=== PATIENT | female | born 1980 | race American Indian/Alaskan Native ===

== ENCOUNTER 2018-02-20 09:46 | Emergency (ER) | payer MEDICAID ==
--- NOTE | 2018-02-20 10:51 | Emergency Department Report ---
ED Upper Extremity Inj HPI - General Chief Complaint: Extremity Problem,Nontraumatic Stated Complaint: SWOLLEN FINGER Source: patient Mode of arrival: Ambulatory Limitations: No Limitations - History of Present Illness Initial Comments: This is a 37-year-old -[place]ub[place] female who presents with swelling and pain to left middle nail. Patient reports removing a ingrown nail 3-4 days ago. Patient states swelling and pain around nail. Improved but is uncomfortable. She is currently applying Neosporin and salt water soaks with some improvement of symptoms. She wanted to make sure wound was healing appropriately. Patient denies drainage, fever, numbness or tingling. Complaint: Injury to:: left, finger (3rd finger) Onset/Timin -: days(s) Other Extremity Injury: Fingers: Left (3rd finger nail) Other Injuries: none Handedness: right Place: home Severity scale (0 -10): 3 Improves With: cold therapy, other (salt water soaks) Worsens With: other (palpation) Context: other (removed ingrown nail) Associated Symptoms: denies other symptoms Treatments Prior to Arrival: cold therapy, NSAIDS - Related Data Previous Rx's Medication Instructions Recorded Last Taken Type Ibuprofen [Motrin] 800 mg PO Q8HR PRN #30 tablet 03/01/15 Unknown Rx traMADol [Ultram 50 MG tab] 50 mg PO Q6HR PRN #30 tablet 03/01/15 Unknown Rx Bacitracin Zinc [Antibiotic] 28.4 gm TP Q8H 7 Days #1 oint...g. 02/20/18 Unknown Rx Allergies Allergy/AdvReac Type Severity Reaction Status Date / Time Penicillins Allergy Hives Verified 03/01/15 11:36 ED Review of Systems ROS: Stated complaint: SWOLLEN FINGER Other details as noted in HPI Constitutional: denies: chills, fever Respiratory: denies: cough, shortness of breath, wheezing Cardiovascular: denies: chest pain, palpitations Gastrointestinal: denies: abdominal pain, nausea, diarrhea Skin: change in hair/nails (swolling around left middle finger). denies: rash Neurological: denies: headache, weakness, paresthesias Psychiatric: denies: anxiety, depression ED Past Medical Hx - Past Medical History Previous Medical History?: Yes Hx Asthma: Yes - Surgical History Past Surgical History?: No - Social History Smoking Status: Current Every Day Smoker Substance Use Type: None - Medications Home Medications: Home Medications Medication Instructions Recorded Confirmed Last Taken Type Ibuprofen [Motrin] 800 mg PO Q8HR PRN #30 tablet 03/01/15 Unknown Rx traMADol [Ultram 50 MG tab] 50 mg PO Q6HR PRN #30 tablet 03/01/15 Unknown Rx Bacitracin Zinc [Antibiotic] 28.4 gm TP Q8H 7 Days #1 oint...g. 02/20/18 Unknown Rx ED Physical Exam - General Limitations: No Limitations General appearance: alert, in no apparent distress - Respiratory Respiratory exam: Present: normal lung sounds bilaterally. Absent: respiratory distress - Cardiovascular Cardiovascular Exam: Present: regular rate, normal rhythm. Absent: systolic murmur, diastolic murmur, rubs, gallop - GI/Abdominal GI/Abdominal exam: Present: soft, normal bowel sounds - Neurological Exam Neurological exam: Present: alert, oriented X3 - Psychiatric Psychiatric exam: Present: normal affect, normal mood - Skin Skin exam: Present: warm, dry, intact, normal color, other (local erythema and mild swelling at 3rd left nail edge, tenderness, no drainage, normal nail bed). Absent: rash ED Course Vital Signs 02/20/18 09:53 Temperature 99.4 F Pulse Rate 60 Respiratory 16 Rate Blood Pressure 113/77 O2 Sat by Pulse 99 Oximetry ED Medical Decision Making - Medical Decision Making Patient was examined by me. Vitals are normal and patient is in no acute distress. Physical susceptible of paronychia to her middle finger without abscess. Patient given tetanus 0.5 mL IM while in the emergency room. Start bacitracin topical ointment. Plan discussed with patient to discharge home and treat outpatient. Patient discharged home in stable condition. Follow up with PCP in 2-3 days. Critical care attestation.: If time is entered above; I have spent that time in minutes in the direct care of this critically ill patient, excluding procedure time. ED Disposition Clinical Impression: Paronychia of left middle finger Disposition: - TO HOME OR SELFCARE Is pt being admited?: No Does the pt Need Aspirin: No Condition: Stable Instructions: Paronychia (ED) Additional Instructions: Apply bacitracin topical to wound three times a day. Soak finger in warm water twice a day. Follow up with primary care provider in 2-3 days. Prescriptions: Bacitracin Zinc [Antibiotic] 28.4 gm TP Q8H 7 Days #1 oint...g. Referrals: SAHARA MCDONALD MD [Staff Physician] - 3-5 Days [facility] [Outside] - 3-5 Days [facility] [Outside] - 3-5 Days Forms: Work/School Release Form(ED) Time of Disposition: 10:51 Print Language: GREENLANDIC
[2018-02-20] MEDS ORDERED: BOOSTRIX IM ONE (10:55)
[2018-02-20 11:15] VITALS: BP 136/72
== END 2018-02-20 11:08 | disposition home or self-care (01) ==
LOC: ED 09:46
DX: L03.012 Cellulitis of left finger (principal); J45.909 Unspecified asthma, uncomplicated; F17.200 Nicotine dependence, unspecified, uncomplicated; Z88.0 Allergy status to penicillin
CPT/HCPCS: 90471; 90715; 99282

== ENCOUNTER 2018-12-16 02:07 | Emergency (ER) | payer MEDICAID ==
[2018-12-16 02:12] VITALS: BP 139/83
[2018-12-16] MEDS ORDERED: PROVENTIL IH ONE (03:20)
[2018-12-16] MEDS ORDERED: SOLU-Medrol IM ONE (03:20)
--- NOTE | 2018-12-16 03:25 | Emergency Department Report ---
ED Asthma HPI - General Chief Complaint: Upper Respiratory Infection Stated Complaint: WHEEZING COUGH W/FEVER CHEST PAIN Time Seen by Provider: 12/16/18 03:20 Source: patient Mode of arrival: Ambulatory Limitations: No Limitations - History of Present Illness Initial Comments: 38 YO WITH ASTHMA OUT OF HER MEDS COMES TO ER WITH HOARSENESS, WHEEZING, AND CHILLS. VSS. NO FEVER. AMBULATORY WITHOUT SOB. - Related Data Previous Rx's Medication Instructions Recorded Last Taken Type ALBUTEROL Inhaler (OR & NICU) 2 puff IH QID PRN #1 inhalation 12/16/18 Unknown Rx [ProAir HFA Inhaler] ALBUTEROL NEB's [Proventil 0.083% 2.5 mg IH TID PRN #1 box 12/16/18 Unknown Rx NEBS] Azithromycin [Zithromax Z-CAROLYNN] 250 mg PO DAILY #6 tablet 12/16/18 Unknown Rx Cetirizine HCl [ZyrTEC] 10 mg PO DAILY #30 capsule 12/16/18 Unknown Rx Fluticasone [Flonase] 1 spray NS QDAY #1 bottle 12/16/18 Unknown Rx predniSONE [Deltasone] 20 mg PO DAILY #5 tablet 12/16/18 Unknown Rx Allergies Allergy/AdvReac Type Severity Reaction Status Date / Time Penicillins Allergy Hives Verified 03/01/15 11:36 ED Review of Systems ROS: Stated complaint: WHEEZING COUGH W/FEVER CHEST PAIN Other details as noted in HPI Comment: All other systems reviewed and negative ED Past Medical Hx - Past Medical History Previous Medical History?: Yes Hx Asthma: Yes Additional medical history: anemia - Surgical History Past Surgical History?: No - Family History Family history: no significant - Social History Smoking Status: Never Smoker Substance Use Type: None - Medications Home Medications: Home Medications Medication Instructions Recorded Confirmed Last Taken Type ALBUTEROL Inhaler (OR & NICU) 2 puff IH QID PRN #1 inhalation 12/16/18 Unknown Rx [ProAir HFA Inhaler] ALBUTEROL NEB's [Proventil 0.083% 2.5 mg IH TID PRN #1 box 12/16/18 Unknown Rx NEBS] Azithromycin [Zithromax Z-CAROLYNN] 250 mg PO DAILY #6 tablet 12/16/18 Unknown Rx Cetirizine HCl [ZyrTEC] 10 mg PO DAILY #30 capsule 12/16/18 Unknown Rx Fluticasone [Flonase] 1 spray NS QDAY #1 bottle 12/16/18 Unknown Rx predniSONE [Deltasone] 20 mg PO DAILY #5 tablet 12/16/18 Unknown Rx ED Physical Exam - General Limitations: No Limitations General appearance: alert - Head Head exam: Present: normocephalic - Eye Eye exam: Present: normal appearance - ENT ENT exam: Present: mucous membranes moist - Neck Neck exam: Present: normal inspection - Respiratory Respiratory exam: Present: wheezes - Cardiovascular Cardiovascular Exam: Present: regular rate - GI/Abdominal GI/Abdominal exam: Present: soft - Extremities Exam Extremities exam: Present: normal inspection - Neurological Exam Neurological exam: Present: alert, oriented X3 ED Course Vital Signs 12/16/18 02:11 Temperature 97.8 F Pulse Rate 65 Respiratory 18 Rate Blood Pressure 139/83 O2 Sat by Pulse 96 Oximetry ED Medical Decision Making - Medical Decision Making asthma out of meds now with hoarseness, chills, cough medicated in ER dc home with dc plan of care, rx and follow up Vital Signs 12/16/18 02:11 Temperature 97.8 F Pulse Rate 65 Respiratory 18 Rate Blood Pressure 139/83 O2 Sat by Pulse 96 Oximetry Critical care attestation.: If time is entered above; I have spent that time in minutes in the direct care of this critically ill patient, excluding procedure time. ED Disposition Clinical Impression: Asthma with acute exacerbation, URTI (acute upper respiratory infection) Disposition: DC-01 TO HOME OR SELFCARE Is pt being admited?: No Does the pt Need Aspirin: No Condition: Stable Instructions: Asthma (ED) Additional Instructions: MEDS ORDERED TODAY HYDRATE WELL WITH WATER MOTRIN OR TYLENOL FOR PAIN OR FEVER FOLLOW UP WITH PCP TO BE SURE YOU ARE GETTING BETTER Prescriptions: predniSONE [Deltasone] 20 mg PO DAILY #5 tablet Fluticasone [Flonase] 1 spray NS QDAY #1 bottle ALBUTEROL Inhaler (OR & NICU) [ProAir HFA Inhaler] 2 puff IH QID PRN #1 inhalation PRN Reason: Shortness Of Breath ALBUTEROL NEB's [Proventil 0.083% NEBS] 2.5 mg IH TID PRN #1 box PRN Reason: Wheezing Azithromycin [Zithromax Z-CAROLYNN] 250 mg PO DAILY #6 tablet Cetirizine HCl [ZyrTEC] 10 mg PO DAILY #30 capsule Referrals: LUCIEN PARKER MD [Staff Physician] - 3-5 Days Time of Disposition: 03:23
== END 2018-12-16 03:50 | disposition home or self-care (01) ==
LOC: ED 02:07
DX: J45.901 Unspecified asthma with (acute) exacerbation (principal); J06.9 Acute upper respiratory infection, unspecified; Z79.899 Other long term (current) drug therapy; Z88.0 Allergy status to penicillin
CPT/HCPCS: 94640; 96372; 99282; J2930; 94644

== ENCOUNTER 2019-04-04 01:53 | Emergency (ER) | payer MEDICAID ==
[2019-04-04 02:04] VITALS: BP 151/107
[2019-04-04 02:31] LABS: Basophils # (Auto) 0.1 K/mm3 (0.0-0.1); Basophils % (Auto) 1.7 % (0.0-1.8); Eosinophils # (Auto) 0.3 K/mm3 (0.0-0.4); Eosinophils % (Auto) 3.8 % (0.0-4.3); Hematocrit 40.2 % (30.3-42.9); Hemoglobin 13.2 gm/dl (10.1-14.3); Lymphocytes # (Auto) 3.1 K/mm3 (1.2-5.4); Lymphocytes % (Auto) 43.1 % (13.4-35.0); Mean Corpuscular HGB Conc 33 % (30-34); Mean Corpuscular Volume 88 fl (79-97); Monocytes # (Auto) 0.6 K/mm3 (0.0-0.8); Monocytes % (Auto) 8.4 % (0.0-7.3); Platelet Count 275 K/mm3 (140-440); Red Blood Count 4.57 M/mm3 (3.65-5.03)
--- NOTE | 2019-04-04 02:51 | XRay Report ---
CHEST 1 VIEW INDICATION / CLINICAL INFORMATION: Chest Pain. COMPARISON: None available. FINDINGS: SUPPORT DEVICES: None. HEART / MEDIASTINUM: No significant abnormality. LUNGS / PLEURA: No significant pulmonary or pleural abnormality. No pneumothorax. ADDITIONAL FINDINGS: No significant additional findings. IMPRESSION: 1. No acute findings. Signer Name: Crystal Martinez MD Signed: 04/04/2019 2:47 AM Workstation Name: [id number]
[2019-04-04 03:40] LABS: BUN/Creatinine Ratio 16; Blood Urea Nitrogen 11 mg/dL (7-17); Calcium 9.1 mg/dL (8.4-10.2)
[2019-04-04 03:41] LABS: Hemolysis Index 18
[2019-04-04] MEDS ORDERED: ASPIRIN 325 MG TAB PO ONE (04:07)
[2019-04-04] MEDS ORDERED: IPRATROPIUM/ALBUTEROL SULFATE 3 ML AMPUL.NEB IH ONE (04:11)
[2019-04-04] MEDS ORDERED: ACETAMINOPHEN 500 MG TAB PO ONE (04:11)
[2019-04-04] MEDS ORDERED: methylPREDNISolone Sod Succinate 125 MG/2 ML INJ IM ONE (04:11)
--- NOTE | 2019-04-04 05:39 | Emergency Department Report ---
- General Chief Complaint: Chest Pain Stated Complaint: WHEEZING, COUGH, CHEST PAINS Source: patient Mode of arrival: Ambulatory Limitations: No Limitations - History of Present Illness Initial Comments: Patient is a 38-year-old -Tuval[place] female with no past medical history who presents to the ED with [place] of acute onset persistent nasal and sinus congestion, dry cough with wheezing, shortness of breath and pleuritic chest pain for the last 1 week. Patient states that her daughter had similar symptoms prior to her symptoms starting. Patient denies dizziness, syncope, fever, chills, sore throat, nausea, vomiting, abdominal pain, change in vision, diarrhea, dysuria, urinary frequency and urgency, heavy lifting or fall. MD Complaint: cough, rhinorrhea, nasal congestion, other (pleuritic chest wall pain) -: Sudden, week(s) (1) Severity: severe Severity scale (0 -10): 7 Quality: sharp, aching Consistency: constant Improves With: nothing Worsens With: nothing Context: sick contacts Associated Symptoms: denies other symptoms, headache, rhinorrhea, nasal congestion, cough, chest pain, shortness of breath. denies: fever, chills, myalgias, diaphoresis, sore throat, stiff neck, abdominal pain, vomiting, diarrhea, dysuria, confusion, epistaxis, other Treatments Prior to Arrival: none - Related Data Previous Rx's Medication Instructions Recorded Last Taken Type ALBUTEROL Inhaler (OR & NICU) 2 puff IH QID PRN #1 inhalation 12/16/18 Unknown Rx [ProAir HFA Inhaler] ALBUTEROL NEB's [Proventil 0.083% 2.5 mg IH TID PRN #1 box 12/16/18 Unknown Rx NEBS] Azithromycin [Zithromax Z-CAROLYNN] 250 mg PO DAILY #6 tablet 12/16/18 Unknown Rx Cetirizine HCl [ZyrTEC] 10 mg PO DAILY #30 capsule 12/16/18 Unknown Rx Fluticasone [Flonase] 1 spray NS QDAY #1 bottle 12/16/18 Unknown Rx predniSONE [Deltasone] 20 mg PO DAILY #5 tablet 12/16/18 Unknown Rx ALBUTEROL Inhaler (OR & NICU) 2 puff IH QID PRN #8.5 gram 04/04/19 Unknown Rx [ProAir HFA Inhaler] Benzonatate [Tessalon Perles] 100 mg PO Q8HR #30 capsule 04/04/19 Unknown Rx Ibuprofen [Motrin] 800 mg PO Q8HR PRN #24 tablet 04/04/19 Unknown Rx levoFLOXacin [Levaquin TAB] 500 mg PO QDAY #10 tablet 04/04/19 Unknown Rx methylPREDNISolone [Medrol 4MG 4 mg PO DAILY #21 tab.ds.pk 04/04/19 Unknown Rx DOSEPAK (21 tabs)] Allergies Allergy/AdvReac Type Severity Reaction Status Date / Time Penicillins Allergy Hives Verified 03/01/15 11:36 ED Review of Systems ROS: Stated complaint: WHEEZING, COUGH, CHEST PAINS Other details as noted in HPI Constitutional: denies: chills, fever Eyes: denies: eye pain, eye discharge, vision change ENT: congestion. denies: ear pain, throat pain Respiratory: cough, shortness of breath, wheezing Cardiovascular: chest pain (pleuritic chest pain). denies: palpitations Endocrine: no symptoms reported Gastrointestinal: denies: abdominal pain, nausea, diarrhea Genitourinary: denies: urgency, dysuria, discharge Musculoskeletal: denies: back pain, joint swelling, arthralgia Skin: denies: rash, lesions Neurological: denies: headache, weakness, paresthesias Psychiatric: denies: anxiety, depression Hematological/Lymphatic: denies: easy bleeding, easy bruising ED Past Medical Hx - Past Medical History Previous Medical History?: Yes Hx Asthma: Yes Additional medical history: anemia - Surgical History Past Surgical History?: No - Social History Smoking Status: Current Every Day Smoker Substance Use Type: None - Medications Home Medications: Home Medications Medication Instructions Recorded Confirmed Last Taken Type ALBUTEROL Inhaler (OR & NICU) 2 puff IH QID PRN #1 inhalation 12/16/18 Unknown Rx [ProAir HFA Inhaler] ALBUTEROL NEB's [Proventil 0.083% 2.5 mg IH TID PRN #1 box 12/16/18 Unknown Rx NEBS] Azithromycin [Zithromax Z-CARLOYNN] 250 mg PO DAILY #6 tablet 12/16/18 Unknown Rx Cetirizine HCl [ZyrTEC] 10 mg PO DAILY #30 capsule 12/16/18 Unknown Rx Fluticasone [Flonase] 1 spray NS QDAY #1 bottle 12/16/18 Unknown Rx predniSONE [Deltasone] 20 mg PO DAILY #5 tablet 12/16/18 Unknown Rx ALBUTEROL Inhaler (OR & NICU) 2 puff IH QID PRN #8.5 gram 04/04/19 Unknown Rx [ProAir HFA Inhaler] Benzonatate [Tessalon Perles] 100 mg PO Q8HR #30 capsule 04/04/19 Unknown Rx Ibuprofen [Motrin] 800 mg PO Q8HR PRN #24 tablet 04/04/19 Unknown Rx levoFLOXacin [Levaquin TAB] 500 mg PO QDAY #10 tablet 04/04/19 Unknown Rx methylPREDNISolone [Medrol 4MG 4 mg PO DAILY #21 tab.ds.pk 04/04/19 Unknown Rx DOSEPAK (21 tabs)] ED Physical Exam - General Limitations: No Limitations General appearance: alert, in no apparent distress - Head Head exam: Present: atraumatic, normocephalic, normal inspection - Eye Eye exam: Present: normal appearance, PERRL, EOMI Pupils: Present: normal accommodation - ENT ENT exam: Present: normal orophraynx, mucous membranes moist, TM's normal bilaterally, normal external ear exam, other (grossly congested nasal passages) - Neck Neck exam: Present: normal inspection, full ROM. Absent: tenderness, lymphadenopathy - Respiratory Respiratory exam: Present: normal lung sounds bilaterally, wheezes (mildly diffuse coarse wheezes throughout). Absent: respiratory distress, chest wall tenderness, accessory muscle use, decreased breath sounds - Cardiovascular Cardiovascular Exam: Present: regular rate, normal rhythm, normal heart sounds. Absent: systolic murmur, diastolic murmur, rubs, gallop - GI/Abdominal GI/Abdominal exam: Present: soft, normal bowel sounds. Absent: tenderness, guarding, rebound, hyperactive bowel sounds, mass - Extremities Exam Extremities exam: Present: normal inspection, full ROM, normal capillary refill - Back Exam Back exam: Present: normal inspection, full ROM - Neurological Exam Neurological exam: Present: alert, oriented X3, CN II-XII intact, normal gait, reflexes normal - Psychiatric Psychiatric exam: Present: normal affect, normal mood - Skin Skin exam: Present: warm, dry, intact, normal color. Absent: rash ED Course Vital Signs 04/04/19 04/04/19 02:01 04:58 Temperature 97.8 F Pulse Rate 64 Respiratory 20 20 Rate Blood Pressure 151/107 O2 Sat by Pulse 98 Oximetry ED Medical Decision Making - Lab Data Result diagrams: 04/04/19 02:09 04/04/19 02:09 - EKG Data EKG shows normal: sinus rhythm Rate: bradycardia - EKG Data 04/04/19 05:44 EKG shows sinus bradycardia with a ventricular rate of [address] or T- wave abnormalities. - Radiology Data Radiology results: report reviewed, image reviewed Chest x-ray shows no acute cardiopulmonary modalities or pneumonitis. - Medical Decision Making This is a 38-year-old female who presented to the ED with nasal and sinus congestion, frontal sinus pressure, dry cough with pleuritic chest pain as well as wheezing on shortness of breath for one week. In the ED, patient is alert and oriented 3 in destruction and distress. Patient was treated with DuoNeb in the ED as well as Solu-Medrol and aspirin. Lab test results reviewed on nonactionable. Chest x-ray shows no acute cardiopulmonary abnormalities. Patie nt symptoms are likely due to upper respiratory infection and bronchitis. Patient was discharged home on medications and advised to follow-up with her primary care physician in 7-10 days for reevaluation or return to the ED immediately if symptoms get worse. - Differential Diagnosis acute bronchitis; Pneumonia; URI; Sinusitis; ACS Critical care attestation.: If time is entered above; I have spent that time in minutes in the direct care of this critically ill patient, excluding procedure time. ED Disposition Clinical Impression: Acute upper respiratory infection, Pleuritic chest pain Acute bronchitis Qualifiers: Bronchitis organism: other organism Qualified Code(s): J20.8 - Acute bronchitis due to other specified organisms Disposition: DC-01 TO HOME OR SELFCARE Is pt being admited?: No Does the pt Need Aspirin: No Condition: Stable Instructions: Acute Bronchitis (ED), Chest Pain (ED), Upper Respiratory Infection (ED) Additional Instructions: Take medications with food, drink plenty fluids and follow-up with primary care physician in 7-10 days for reevaluation. Return to the ED immediately if symptoms get worse. Prescriptions: levoFLOXacin [Levaquin TAB] 500 mg PO QDAY #10 tablet methylPREDNISolone [Medrol 4MG DOSEPAK (21 tabs)] 4 mg PO DAILY #21 tab.ds.pk Ibuprofen [Motrin] 800 mg PO Q8HR PRN #24 tablet PRN Reason: Pain , Severe (7-10) ALBUTEROL Inhaler (OR & NICU) [ProAir HFA Inhaler] 2 puff IH QID PRN #8.5 gram PRN Reason: Shortness Of Breath Benzonatate [Tessalon Perles] 100 mg PO Q8HR #30 capsule Referrals: PRIMARY CARE, [Primary Care Provider] - 3-5 Days Forms: Work/School Release Form(ED) Time of Disposition: 05:34 Print Language: ESTONIAN
[2019-04-04 05:40] LABS: Alanine Aminotransferase 14 units/L (7-56); Albumin 4.2 g/dL (3.9-5); Bilirubin,Direct < 0.2 mg/dL (0-0.2)
== END 2019-04-04 06:10 | disposition home or self-care (01) ==
LOC: ED 01:53
DX: J06.9 Acute upper respiratory infection, unspecified (principal); J20.9 Acute bronchitis, unspecified; J45.909 Unspecified asthma, uncomplicated; D64.9 Anemia, unspecified; F17.200 Nicotine dependence, unspecified, uncomplicated; Z79.1 Long term (current) use of non-steroidal anti-inflammatories (NSAID); Z79.899 Other long term (current) drug therapy; Z88.0 Allergy status to penicillin
CPT/HCPCS: 36415; 71045; 80048; 80076; 84484; 85025; 93005; 93010; 94640; 96372; 99284; J2930

== ENCOUNTER 2019-07-01 22:10 | Emergency (ER) | payer MEDICAID ==
[2019-07-01 22:25] VITALS: BP 128/89
[2019-07-01] MEDS ORDERED: predniSONE 20 MG TAB PO ONE (22:29)
--- NOTE | 2019-07-01 22:31 | Emergency Department Report ---
Blank Doc - Documentation Documentation: 39-year-old female that presents with wheezing and SOB. This initial assessment/diagnostic orders/clinical plan/treatment(s) is/are subject to change based on patient's health status, clinical progression and re- assessment by fellow clinical providers in the ED. Further treatment and workup at subsequent clinical providers discretion. Patient/guardians urged not to elope from the ED as their condition may be serious if not clinically assessed and managed. Initial orders include: 1- Patient sent to [facility] for further evaluation and treatment 2- breathing treatment/steroids
[2019-07-01] MEDS ORDERED: predniSONE 20 MG TAB ONE (22:32)
[2019-07-01] MEDS: ALBUTEROL 2.5 MG/3 ML NEBU IH ONE ×2 (22:45→22:48)
[2019-07-01] MEDS: IPRATROPIUM 0.02% NEBU 2.5 ML IH ONE ×2 (22:45→22:47)
--- NOTE | 2019-07-01 23:54 | Emergency Department Report ---
ED Asthma HPI - General Chief Complaint: Adult Asthma Stated Complaint: CHEST PAIN SOB ASTHMA Time Seen by Provider: 07/01/19 22:29 Source: patient Mode of arrival: Ambulatory Limitations: No Limitations - History of Present Illness Initial Comments: Ms. Rodriguez is a 39 y/o aaf with hx of asthma who presents for "asthma" attack" symptoms rated at 5/10 for past 2 days. pt states she is out of albuterol. Symptoms are exacerbated by environmental exposure , symptoms are relieved by albuterol temporarily. MD Complaint: "asthma attack" Onset/Timin -: days(s) Asthma History: childhood onset Severity: moderate Context: recent URI Associated Symptoms: productive cough (yellow green ). denies: fever Treatments Prior to Arrival: other (none) - Related Data Current Asthma Therapy: inhaled bronchodilator Previous Rx's Medication Instructions Recorded Last Taken Type ALBUTEROL NEB's [Proventil 0.083% 2.5 mg IH TID PRN #1 box 12/16/18 Unknown Rx NEBS] Albuterol INH(or & Nicu Only) 2 puff IH QID PRN #1 inhalation 12/16/18 Unknown Rx [ProAir HFA Inhaler] Azithromycin [Zithromax Z-CAROLYNN] 250 mg PO DAILY #6 tablet 12/16/18 Unknown Rx Cetirizine HCl [ZyrTEC] 10 mg PO DAILY #30 capsule 12/16/18 Unknown Rx Fluticasone [Flonase] 1 spray NS QDAY #1 bottle 12/16/18 Unknown Rx predniSONE [Deltasone] 20 mg PO DAILY #5 tablet 12/16/18 Unknown Rx Albuterol INH(or & Nicu Only) 2 puff IH QID PRN #8.5 gram 04/04/19 Unknown Rx [ProAir HFA Inhaler] Benzonatate [Tessalon Perles] 100 mg PO Q8HR #30 capsule 04/04/19 Unknown Rx Ibuprofen [Motrin] 800 mg PO Q8HR PRN #24 tablet 04/04/19 Unknown Rx levoFLOXacin [Levaquin TAB] 500 mg PO QDAY #10 tablet 04/04/19 Unknown Rx methylPREDNISolone [Medrol 4MG 4 mg PO DAILY #21 tab.ds.pk 04/04/19 Unknown Rx DOSEPAK (21 tabs)] Albuterol INH(or & Nicu Only) 2 puff IH QID PRN #1 each 07/02/19 Unknown Rx [ProAir HFA Inhaler] Azithromycin [Zithromax Z-CAROLYNN] 250 mg PO DAILY #6 tab 07/02/19 Unknown Rx predniSONE [Deltasone] 40 mg PO QDAY 5 Days #10 tab 07/02/19 Unknown Rx Allergies Allergy/AdvReac Type Severity Reaction Status Date / Time Penicillins Allergy Hives Verified 03/01/15 11:36 ED Review of Systems ROS: Stated complaint: CHEST PAIN SOB ASTHMA Other details as noted in HPI Constitutional: denies: chills, fever Eyes: denies: eye pain, eye discharge, vision change ENT: ear pain, throat pain, congestion Respiratory: cough, shortness of breath, wheezing Cardiovascular: denies: chest pain, palpitations Endocrine: no symptoms reported Gastrointestinal: denies: abdominal pain, nausea, diarrhea Genitourinary: denies: urgency, dysuria, discharge Musculoskeletal: denies: back pain, joint swelling, arthralgia Skin: denies: rash, lesions Neurological: denies: headache, weakness, paresthesias Psychiatric: denies: anxiety, depression Hematological/Lymphatic: denies: easy bleeding, easy bruising ED Past Medical Hx - Past Medical History Previous Medical History?: Yes Hx Asthma: Yes Additional medical history: anemia - Surgical History Past Surgical History?: No - Social History Smoking Status: Never Smoker Substance Use Type: None - Medications Home Medications: Home Medications Medication Instructions Recorded Confirmed Last Taken Type ALBUTEROL NEB's [Proventil 0.083% 2.5 mg IH TID PRN #1 box 12/16/18 Unknown Rx NEBS] Albuterol INH(or & Nicu Only) 2 puff IH QID PRN #1 inhalation 12/16/18 Unknown Rx [ProAir HFA Inhaler] Azithromycin [Zithromax Z-CAROLYNN] 250 mg PO DAILY #6 tablet 12/16/18 Unknown Rx Cetirizine HCl [ZyrTEC] 10 mg PO DAILY #30 capsule 12/16/18 Unknown Rx Fluticasone [Flonase] 1 spray NS QDAY #1 bottle 12/16/18 Unknown Rx predniSONE [Deltasone] 20 mg PO DAILY #5 tablet 12/16/18 Unknown Rx Albuterol INH(or & Nicu Only) 2 puff IH QID PRN #8.5 gram 04/04/19 Unknown Rx [ProAir HFA Inhaler] Benzonatate [Tessalon Perles] 100 mg PO Q8HR #30 capsule 04/04/19 Unknown Rx Ibuprofen [Motrin] 800 mg PO Q8HR PRN #24 tablet 04/04/19 Unknown Rx levoFLOXacin [Levaquin TAB] 500 mg PO QDAY #10 tablet 04/04/19 Unknown Rx methylPREDNISolone [Medrol 4MG 4 mg PO DAILY #21 tab.ds.pk 04/04/19 Unknown Rx DOSEPAK (21 tabs)] Albuterol INH(or & Nicu Only) 2 puff IH QID PRN #1 each 07/02/19 Unknown Rx [ProAir HFA Inhaler] Azithromycin [Zithromax Z-CAROLYNN] 250 mg PO DAILY #6 tab 07/02/19 Unknown Rx predniSONE [Deltasone] 40 mg PO QDAY 5 Days #10 tab 07/02/19 Unknown Rx ED Physical Exam - General Limitations: No Limitations General appearance: alert, in no apparent distress - Head Head exam: Present: atraumatic, normocephalic - Eye Eye exam: Present: normal appearance, PERRL, EOMI Pupils: Present: normal accommodation - ENT ENT exam: Present: normal orophraynx, mucous membranes moist, TM's normal bilaterally, normal external ear exam - Neck Neck exam: Present: normal inspection, full ROM. Absent: tenderness, lymphadenopathy - Respiratory Respiratory exam: Present: wheezes. Absent: respiratory distress, stridor, chest wall tenderness - Cardiovascular Cardiovascular Exam: Present: regular rate, normal rhythm, normal heart sounds - GI/Abdominal GI/Abdominal exam: Present: soft, normal bowel sounds. Absent: tenderness - Rectal Rectal exam: Present: deferred - Extremities Exam Extremities exam: Present: normal inspection, full ROM. Absent: tenderness - Back Exam Back exam: Present: normal inspection, full ROM. Absent: tenderness - Neurological Exam Neurological exam: Present: alert, oriented X3, CN II-XII intact, normal gait - Psychiatric Psychiatric exam: Present: normal affect, normal mood - Skin Skin exam: Present: warm, dry, intact, normal color. Absent: rash ED Course Vital Signs 07/01/19 07/01/19 22:23 23:35 Temperature 99.2 F Pulse Rate 109 H Pulse Rate [ 99 H Posterior Bilateral Throughout] Respiratory 20 Rate Respiratory 20 Rate [Posterior Bilateral Throughout] Blood Pressure 128/89 O2 Sat by Pulse 97 Oximetry ED Medical Decision Making - Medical Decision Making breathing is improved , pt is ambulatory with steady gait without increased wheezing or sob, plan: refill albuterol, azithromycin, prednisone, follow up with primary care doctor in 2-3 days. pt verbalized agreement and understanding of discharge plan. Critical care attestation.: If time is entered above; I have spent that time in minutes in the direct care of this critically ill patient, excluding procedure time. ED Disposition Clinical Impression: Asthma exacerbation Qualifiers: Asthma severity: moderate Asthma persistence: persistent Qualified Code(s): J45.41 - Moderate persistent asthma with (acute) exacerbation Disposition: TO HOME OR SELFCARE Is pt being admited?: No Does the pt Need Aspirin: No Condition: Stable Instructions: Asthma (ED) Prescriptions: predniSONE [Deltasone] 40 mg PO QDAY 5 Days #10 tab Albuterol INH(or & Nicu Only) [ProAir HFA Inhaler] 2 puff IH QID PRN #1 each PRN Reason: Shortness Of Breath Azithromycin [Zithromax Z-CAROLYNN] 250 mg PO DAILY #6 tab Referrals: LUCIEN PARKER MD [Staff Physician] - 3-5 Days Forms: Work/School Release Form(ED) Time of Disposition: 00:03
== END 2019-07-02 00:40 | disposition home or self-care (01) ==
LOC: ED 22:10
DX: J45.901 Unspecified asthma with (acute) exacerbation (principal); Z79.1 Long term (current) use of non-steroidal anti-inflammatories (NSAID); Z79.899 Other long term (current) drug therapy; Z88.0 Allergy status to penicillin
CPT/HCPCS: 94640; 99282; J7512; 94644